=== PATIENT | male | born 1955 | race Caucasian/White ===

== ENCOUNTER 2021-10-09 10:27 | Emergency (ER) | payer MEDICARE, OTHER ==
[~2021-10-09] VITALS: Ht 185.4 cm; Wt 250.0 kg
--- NOTE | 2021-10-09 10:44 | PHYS DOC ---
General Adult EDM: Chief Complaint: GI PROBLEM HPI: HPI: 66-year-old male presents with epigastric abdominal pain, nausea, vomiting. After he ate last night, he had some right upper quadrant discomfort and nausea. The nausea continued all night and he also had diarrhea. He had a few episodes of vomiting. His last vomiting was at 630 this morning. He was able to drink a little bit of Gatorade and eat a banana about 830. He is epigastric pain is better but still a dull cramp in that area. He feels like he has a dry mouth and assumes he is dehydrated. She denies fever or chills. He has no other complaints this time. Review of Systems: Review of Systems: Constitutional: Denies fever or chills Eyes: Denies change in visual acuity HENT: Denies nasal congestion or sore throat Respiratory: Denies cough or shortness of breath Cardiovascular: Denies chest pain or edema GI: Epigastric abdominal pain, nausea, vomiting, diarrhea : Denies dysuria Musculoskeletal: Denies back pain or joint pain Integument: Denies rash Neurologic: Denies headache, focal weakness or sensory changes Endocrine: Denies polyuria or polydipsia Lymphatic: Denies swollen glands Psychiatric: Denies depression or anxiety Physical Exam: PE: Constitutional: Well developed, well nourished, no acute distress, non-toxic appearance. [] HENT: Normocephalic, atraumatic, bilateral external ears normal, oropharynx moist, no oral exudates, nose normal. [] Eyes: PERRLA, EOMI, conjunctiva normal, no discharge. [] Neck: Normal range of motion, no tenderness, supple, no stridor. [] Cardiovascular: Heart rate regular rhythm, no murmur [] Lungs & Thorax: Bilateral breath sounds clear to auscultation [] Abdomen: Bowel sounds normal, soft, mild epigastric tenderness, no masses, no pulsatile masses. [] Skin: Warm, dry, no erythema, no rash. [] Back: No tenderness, no CVA tenderness. [] Extremities: No tenderness, no cyanosis, no clubbing, ROM intact, no edema. [] Neurologic: Alert and oriented X 3, normal motor function, normal sensory function, no focal deficits noted. [] Psychologic: Affect normal, judgement normal, mood normal. [] EKG: EKG: [] Radiology/Procedures: Radiology/Procedures: [] Heart Score: C/O Chest Pain: N/A Risk Factors: Risk Factors: DM, Current or recent (<one month) smoker, HTN, HLP, family history of CAD, obesity. Risk Scores: Score 0 - 3: 2.5% MACE over next 6 weeks - Discharge Home Score 4 - 6: 20.3% MACE over next 6 weeks - Admit for Clinical Observation Score 7 - 10: 72.7% MACE over next 6 weeks - Early Invasive Strategies Course & Med Decision Making: Course & Med Decision Making Pertinent Labs and Imaging studies reviewed. (See chart for details) The patient's labs are unremarkable except for an anion lillian of 19. He has not been able to give us urine because he just does not need to go. He does look clinically dry. We have given him 4 mg of Zofran and a liter of normal saline. He feels well at this time. Had no further vomiting. This is likely viral gastroenteritis. I will discharge him with Zofran for home. He is stable for discharge at this time. [] Dragon Disclaimer: Dragon Disclaimer: This electronic medical record was generated, in whole or in part, using a voice recognition dictation system. Departure Departure: Impression: Primary Impression: Viral gastroenteritis Disposition: HOME / SELF CARE / HOMELESS Condition: STABLE Referrals: ELENA BROOKS MD (PCP) Patient Instructions: Viral Gastroenteritis, [id number] Scripts Ondansetron (ONDANSETRON ODT) 4 Mg Tab.rapdis 1 TAB PO PRN Q6-8HRS PRN for VOMITING, #16 TAB Prov: THEE LOTT DO 10/09/21 THEE LOTT DO Oct 09, 2021 10:44
[2021-10-09] MEDS ORDERED: IV NORMAL SALINE 1,000ML 1,000 ML IV ONE (10:45)
[2021-10-09] MEDS ORDERED: ONDANSETRON PF 4 MG/2 ML VIAL. ONE (10:51)
[2021-10-09] MEDS ORDERED: ONDANSETRON PF 4 MG/2 ML VIAL. IVP ONE (11:00)
[2021-10-09 11:19] LABS: BASO % 0 % (0-3); EOS % 0 % (0-3); HEMATOCRIT 44.7 % (39.0-53.0); LYMPH # 0.4 x10^3/uL (1.0-4.8); LYMPH % 5 % (24-48); MEAN CORPUSCULAR HEMOGLOBIN 31 pg (25-35); MEAN CORPUSCULAR HGB CONC 34 g/dL (31-37); MEAN CORPUSCULAR VOLUME 91 fL (79-100); MONO # 0.7 x10^3/uL (0.0-1.1); MONO % 7 % (0-9); NEUT # 8.3 x10^3uL (1.8-7.7); NEUT % 88 % (31-73); PLATELET COUNT 201 x10^3/uL (140-400); RED CELL DISTRIBUTION WIDTH 13.8 % (11.5-14.5); WHITE BLOOD COUNT 9.4 x10^3/uL (4.0-11.0)
--- NOTE | 2021-10-09 11:20 | RAD ---
2 views of the abdomen 10/09/2021 INDICATION: Epigastric pain COMPARISON STUDY: Abdominal radiograph November 18, 2011 FINDINGS: The bowel gas pattern is nonobstructive. No gross pneumoperitoneum is identified. No acute osseous changes are identified. IMPRESSION: No radiographic evidence of acute intra-abdominal abnormality Electronically signed by: Jude Poe MD (10/09/2021 11:17 AM) [id number]
[2021-10-09 11:31] LABS: POTASSIUM ISTAT 3.6 mmol/L (3.5-5.0)
[2021-10-09] MEDS ORDERED: MORPHINE SULFATE 2 MG/ML DISP.SYRIN. IV ONE (11:45)
[2021-10-09] MEDS ORDERED: ONDA4TAB12 PO (12:39)
[2021-10-09 12:45] VITALS: BP 113/83
[2021-10-09 14:50] LABS: ALBUMIN 3.9 g/dL (3.4-5.0); DIRECT BILIRUBIN 0.2 mg/dL (0.0-0.2); TOTAL BILIRUBIN 0.8 mg/dL (0.2-1.0); TOTAL PROTEIN 7.3 g/dL (6.4-8.2)
== END 2021-10-09 12:51 | disposition home or self-care (01) ==
LOC: ER 10:27
DX: A08.4 Viral intestinal infection, unspecified (principal)
CPT/HCPCS: 36415; 74018; 80047; 80076; 83690; 85025; 96361; 96374; 99284; J2270; J7030